=== PATIENT | male | born 2000 | race Caucasian/White ===

== ENCOUNTER 2024-05-10 15:32 | Inpatient (IN) | payer MEDICAID, OTHER ==
[~2024-05-10] VITALS: Ht 180.3 cm; Wt 92.0 kg
[2024-05-10 16:14] LABS: HEMATOCRIT 48.1 % (42.0-52.0); HEMOGLOBIN 16.3 g/dl (13.5-17.5); MEAN CORPUSCULAR HEMOGLOBIN 31.4 pg (27.0-33.0); MEAN CORPUSCULAR HGB CONC 33.9 g/dl (32.0-36.5); MEAN CORPUSCULAR VOLUME 92.7 fl (80.0-96.0); PLATELET COUNT, AUTOMATED 294 10^3/uL (150-450); RED BLOOD COUNT 5.19 10^6/uL (4.30-6.10); WHITE BLOOD COUNT 15.2 10^3/uL (4.0-10.0)
[2024-05-10 16:44] LABS: ETHYL ALCOHOL (ETHANOL) 0.006 % (0.000-0.010)
[2024-05-10 16:45] LABS: ALBUMIN 4.1 G/DL (3.2-5.2); ALKALINE PHOSPHATASE 56 U/L (40-129); ALT/SGPT 34 U/L (7.0-40); AST/SGOT 24 U/L (<34); BILIRUBIN,DIRECT 0.4 MG/DL (<0.4); BILIRUBIN,TOTAL 1.2 MG/DL (0.3-1.2); BLOOD UREA NITROGEN 17 MG/DL (9-23); CALCIUM LEVEL 9.3 MG/DL (8.5-10.1); CARBON DIOXIDE LEVEL 26 MMOL/L (20-31); CHLORIDE LEVEL 104 MMOL/L (98-107); CREATININE FOR GFR 0.87 MG/DL (0.70-1.30); GLOMERULAR FILTRATION RATE > 60.0 (>60); GLUCOSE, FASTING 120 MG/DL (60-100); SALICYLATE LEVEL < 3.0 MG/DL (<30); SODIUM LEVEL 140 MMOL/L (136-145); TOTAL PROTEIN 7.6 G/DL (5.7-8.2)
[2024-05-10 17:49] LABS: AMPHETAMINES LEVEL URINE NEGATIVE (NEGATIVE); BARBITURATES URINE NEGATIVE (NEGATIVE); BENZODIAZEPINES URINE NEGATIVE (NEGATIVE); COCAINE METABOLITE URINE NEGATIVE (NEGATIVE); METHADONE URINE NEGATIVE (NEGATIVE); OPIATES URINE NEGATIVE (NEGATIVE); PHENCYCLIDINE URINE NEGATIVE (NEGATIVE)
[2024-05-10 17:59] LABS: CANNABINOIDS URINE POSITIVE (NEGATIVE)
[2024-05-10] MEDS ORDERED: OLAN1TAB20 PO (22:03)
[2024-05-10] MEDS ORDERED: HOME MED LIST COMPLETE! XX SCH (22:05)
[2024-05-10] MEDS ORDERED: MAALOX 30 ML SUSP *UDC PO PRN (23:30)
[2024-05-10] MEDS ORDERED: MOM 30ML SUSPENSION UDC PO PRN (23:30)
[2024-05-10] MEDS ORDERED: ACETAMINOPHEN 325 MG TAB PO PRN (23:30)
[2024-05-10] MEDS ORDERED: diphenhydrAMINE 25MG CAP PO PRN (23:30)
[2024-05-10] MEDS ORDERED: traZODone 50 MG TAB PO PRN (23:30)
[2024-05-11 00:27] VITALS: BP 134/76; TEMP 97.4; O2SAT 98
[2024-05-11 06:50] VITALS: BP 129/65; TEMP 98.2; O2SAT 98
[2024-05-11 17:25] VITALS: BP 131/87; TEMP 97.5; O2SAT 98
[2024-05-11] MEDS: OLANZapine 5 MG TAB PO SCH (21:00)
[2024-05-12 06:39] VITALS: BP 134/78; TEMP 96.8; O2SAT 98
[2024-05-14 06:45] VITALS: BP_SYST 112; BP_SYST 146; BP_DIAS 57; BP_DIAS 76; TEMP 97.2; O2SAT 100
[2024-05-14] MEDS: IBUPROFEN 400MG TAB PO PRN (16:20)
[2024-05-14 16:44] VITALS: BP 110/57; TEMP 99; O2SAT 97
[2024-05-14] MEDS: CETIRIZINE (ZyrTEC) 10 MG TAB PO SCH (23:02)
[2024-05-14] MEDS: FLUTICASONE PROP 0.05% NASAL SPRAY 16 GM (FLONASE) NARES SCH (23:02)
[2024-05-14] MEDS: guaiFENesin DM LIQ 10ML UD PO PRN (23:03)
[2024-05-15 06:53] VITALS: BP 90/58; TEMP 97.8; O2SAT 97
[2024-05-15 15:36] VITALS: BP 129/75; TEMP 98.7; O2SAT 98
[2024-05-16 06:29] VITALS: BP 100/55; TEMP 97.3; O2SAT 99
[2024-05-16] MEDS ORDERED: CETI10TA PO (10:52)
== END 2024-05-16 13:27 | disposition home or self-care (01) | DRG 751 ==
LOC: M ED 15:32 → EDBD 15:32 → M ED INP 23:27 → M PSY 05-11 00:10
PROVIDERS: ADMIT Psychiatry & Neurology Neurology; ATTEND Psychiatry & Neurology Neurology
DX: F29 Unspecified psychosis not due to a substance or known physiological condition (principal); Z91.148 Patient's other noncompliance with medication regimen for other reason; F31.9 Bipolar disorder, unspecified; F41.9 Anxiety disorder, unspecified; F12.90 Cannabis use, unspecified, uncomplicated; J06.9 Acute upper respiratory infection, unspecified